=== PATIENT | female | born 2000 | race Caucasian/White ===

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

== ENCOUNTER → 2020-03-07 | Outpatient (CLI) | payer MEDICAID, SELFPAY | END | disposition home or self-care (01) | LOC: LABSPEC 03-08 14:34 | PROVIDERS: PCP Pediatrics; Visit Provider Family Medicine | DX: Z11.59 Encounter for screening for other viral diseases (principal) | CPT/HCPCS: 87635; U0003 ==

== ENCOUNTER 2021-05-01 12:41 | Emergency (ER) | payer MEDICAID, SELFPAY ==
[2021-05-01 12:41] VITALS: BP 124/82; PULSE 78; RESP 16; TEMP 36.4; O2SAT 98; BMI 39.3
== END 2021-05-01 14:15 | disposition left against medical advice (07) ==
LOC: ED 14:26
PROVIDERS: PCP Pediatrics
DX: J02.9 Acute pharyngitis, unspecified (principal); Z53.21 Procedure and treatment not carried out due to patient leaving prior to being seen by health care provider